=== PATIENT | female | born 1990 | race Caucasian/White ===

== ENCOUNTER → 2020-03-14 | Outpatient (CLI) | payer OTHER ==
[~2020-03-14] MED LIST: CETI10TA24 PO; HYDR12.58 PO; OXYC1TAB15 PO
== END | disposition home or self-care (01) ==
LOC: LAB 14:08
PROVIDERS: ATTEND Obstetrics & Gynecology
DX: Z01.818 Encounter for other preprocedural examination (principal); Z11.59 Encounter for screening for other viral diseases
CPT/HCPCS: U0003-CS

== ENCOUNTER 2020-03-17 06:07 | Day surgery (SDC) | payer OTHER ==
[~2020-03-17 06:07] MED LIST changes: -CETI10TA24 PO; +CETI10TA74 PO; -OXYC1TAB15 PO
[2020-03-17] MEDS ORDERED: SCOPOLAMINE 1.5MG PATCH. TD SCH (07:00)
[2020-03-17] MEDS ORDERED: fentaNYL PF VIAL 100 MCG/2 ML VIAL IV PRN ×2 (07:00)
[2020-03-17] MEDS ORDERED: PROCHLORPERAZINE 10 MG/2 ML VIAL. IV PRN (07:00)
[2020-03-17] MEDS ORDERED: LIDOCAINE 1% PF 2 ML VIAL. ID PRN (07:00)
[2020-03-17] MEDS ORDERED: MORPHINE SULFATE 2 MG/ML VIAL. IV PRN (07:00)
[2020-03-17] MEDS ORDERED: IV RINGERS,LACTATED 1000ML 1,000 ML IV SCH (07:00)
[2020-03-17] MEDS ORDERED: HYDROmorphone 2 MG/ML VIAL IV PRN (07:00)
[2020-03-17] MEDS ORDERED: ONDANSETRON PF 4 MG/2 ML VIAL. IV PRN (07:00)
[2020-03-17] MEDS ORDERED: SURGICEL HEMOSTAT 4X8 EACH. ONE (07:11)
[2020-03-17] MEDS ORDERED: BUPIVACAINE-EPI 0.25%-1:200000 MPF 30 ML VIAL. ONE (07:12)
[2020-03-17] MEDS ORDERED: KETOROLAC 30 MG/ML VIAL. ONE (07:36)
[2020-03-17] MEDS ORDERED: FAMOTIDINE 20 MG/2 ML VIAL ONE (07:36)
[2020-03-17] MEDS ORDERED: ONDANSETRON PF 4 MG/2 ML VIAL. ONE (07:36)
[2020-03-17] MEDS ORDERED: PROPOFOL 10 MG/ML (20ML) VIAL. IV ONE (07:36)
[2020-03-17] MEDS ORDERED: MIDAZOLAM HCL/PF 2 MG/2 ML VIAL. ONE (07:36)
[2020-03-17] MEDS ORDERED: fentaNYL PF VIAL 100 MCG/2 ML VIAL ONE (07:36)
[2020-03-17] MEDS ORDERED: SEVOFLURANE 31 TO 60 MINUTES. IH ONE (07:36)
[2020-03-17] MEDS ORDERED: LIDOCAINE 2% PF 5 ML VIAL. ONE (07:36)
[2020-03-17] MEDS ORDERED: ROCURONIUM 50 MG/5 ML VIAL. ONE (07:36)
[2020-03-17] MEDS ORDERED: DEXAMETHASONE SOD PHOS 4 MG/ML VIAL ONE ×2 (07:38→07:39)
[2020-03-17] MEDS ORDERED: ESMOLOL 100 MG/10 ML VIAL. IVP ONE (08:20)
[2020-03-17] MEDS ORDERED: GLYCOPYRROLATE 1 MG/5 ML VIAL. ONE (08:26)
[2020-03-17] MEDS ORDERED: NEOSTIGMINE METHYLSULFATE 5 MG/5 ML SYRINGE. ONE (08:26)
--- NOTE | 2020-03-17 08:35 | PDOC ---
BRIEF OPERATIVE NOTE Date: Mar 17, 2020 Pre-Op Diagnosis Sterilization Post-Op Diagnosis SAme Procedure Performed [facility]. Salpingectomy Surgeon Dr. Burks Journe[employer] Consumer Service: Juan Pablo Anesthesia Type: General Blood Loss 5 ml Specimens Obtained elvis. fallopian tubes Findings nml size uterus, nml fallopian tubes and ovaries elvis., IUD in place Complications none Operative Note see dictation SHANI BURKS Jr, MD Mar 17, 2020 08:35
--- NOTE | 2020-03-17 08:37 | DISCH ---
DISCHARGE INSTRUCTIONS Condition on Discharge Condition on Discharge: Stable Activity After Discharge Activity Instructions for Disc: Activity as tolerated Lifting Instructions after Dis: No heavy lifting Driving Instructions after Dis: Do not drive today Diet after Discharge Diet after Discharge: Regular Contacting the DRKourtney after DC Call your doctor for: Concerns you may have Follow-Up Follow up with: Dr. Burks in 1 wk SHANI BURKS Jr, MD Mar 17, 2020 08:37
[2020-03-17] MEDS ORDERED: OXYC1TAB15 PO (08:43)
[2020-03-17] MEDS ORDERED: oxyCODONE/APAP 5/325 1 TAB TABLET PO ONE (08:45)
--- NOTE | 2020-03-17 09:20 | OP ---
DATE OF SURGERY: 03/17/2020 PREOPERATIVE DIAGNOSIS: Sterilization. POSTOPERATIVE DIAGNOSIS: Sterilization. PROCEDURE: Laparoscopic bilateral salpingectomy. SURGEON: Shani Burks MD EDUCATIONAL INSTITUTION CURATOR: Juan Pablo. ANESTHESIA: GETA. ESTIMATED BLOOD LOSS: Less than 5 mL. COMPLICATIONS: None. FINDINGS: Normal size uterus, normal fallopian tubes and ovaries bilaterally. IUD in place. SUMMARY: A 29-year-old desires permanent sterilization. Counseled on risks, benefits and expectations as well as failure rate and voiced clear understanding to proceed. DESCRIPTION OF PROCEDURE: The patient was taken to surgery suite and placed in dorsal lithotomy position. She was prepped with Betadine solution for vaginal prep and ChloraPrep for abdominal prep. After adequate anesthesia, bivalve speculum was placed vaginally. Anterior lip of the cervix grasped with single tooth tenaculum. Norton uterine manipulator was then placed. The bivalve speculum was removed. Attention was placed on abdomen. Small transverse skin incision was made just below the umbilicus with a scalpel. Veress needle was then placed through the infraumbilical incision site. The abdomen was allowed to insufflate up to 1-1/2 liters CO2 gas. The Veress needle was then removed, 5 mm trocar was placed. The scope was positioned. Uterus, fallopian tubes and ovaries appeared normal. Two additional incisions made in the left lower quadrant with a 5 mm and 8 mm trocar was placed. With aid of [place] graspers and EnSeal device, the right fallopian tube was dissected away from the right adnexa. Same process took place with left adnexa. The pedicles were hemostatic. The trocars were then removed under direct visualization. The abdomen was allowed to deflate as much as possible along with mechanical manipulation. The three skin incisions were reapproximated using 4-0 Vicryl suture in subcuticular manner. A 0.25% Marcaine with epinephrine was injected at each incision site. Single tooth tenaculum and Norton uterine manipulator was then removed. The patient tolerated the procedure well and was taken to recovery room in stable condition. Sponge and needle count correct x 3. SHANI BURKS MD DR: JAIMEE/sophia JOB#: [id number] / [id number]
[2020-03-17] MEDS ORDERED: PROCHLORPERAZINE 10 MG/2 ML VIAL. ONE (09:26)
[2020-03-17 09:45] VITALS: BP 125/49
--- NOTE | 2020-03-18 17:07 | PATHOLOGY ---
[facility] Accession Number: [id number] . 01 Material submitted: . PART A: fallopian tube - RIGHT FALLOPIAN TUBE. Modifiers: right PART B: fallopian tube - LEFT FALLOPIAN TUBE. Modifiers: left . 01 Clinical history: . Sterilization . 02 Diagnosis: A. Right salpingectomy: - Segment of fallopian tube confirmed. . B. Left salpingectomy: - Segment of fallopian tube confirmed. (JPM:[facility] 03/18/2020) [facility] 03/18/2020 1532 Local . 02 Electronically signed: . Joseph Calderon MD, Pathologist NPI- [id number] . 01 Gross description: . A. The specimen is received in formalin, labeled "Leyla Jatinder, right fallopian tube". Received is a fimbriated fallopian tube measuring 5.3 cm in length by 0.5 cm in diameter. The serosal surface is pink-ling to pink-purple and smooth in appearance. Sectioning reveals a pinpoint to patent lumen. The specimen is submitted representatively in cassette A1. . B. The specimen is received in formalin, labeled "Leyla Jatinder, left fallopian tube". Received is a fimbriated fallopian tube measuring 5.2 cm in length by 0.6 cm in diameter. The serosal surface is pink-lópez and glistening in appearance. Sectioning reveals a pinpoint to patent lumen. The specimen is submitted representatively in cassette B1. ([facility]; 03/17/2020) QA/QA 03/17/2020 1724 Local . 02 Pathologist provided ICD-10: Z30.2 . 02 CPT . 336602, [id number] Specimen Comment: A courtesy copy of this report has been sent to [phone], [phone] Specimen Comment: [id number] Specimen Comment: Report sent to / DR VASQUEZ Performed at: [address], [place] [id number] MD Ed Browne MD Phone: [phone] [facility]formed [facility]: [facility] [address] [place], [place] [id number] MD Joseph Calderon MD Phone: [phone]
--- NOTE | 2020-03-25 12:38 | PDOC1 ---
History and Physical Date of Admission Date of Admission DATE: 03/25/20 TIME: 12:36 Identification/Chief Complaint Chief Complaint sterilization Source Source: Patient History of Present Illness History of Present Illness 29 y/o presents for surgical sterilization. Past Medical History Cardiovascular: No pertinent hx Pulmonary: No pertinent hx Past Surgical History Past Surgical History: No pertinent history Current Medications Current Medications Current Medications Ondansetron HCl (Zofran) 4 mg PRN Q6HRS PRN IV NAUSEA/VOMITING; Start 03/17/20 at 07:00; Stop 03/17/20 at 10:31; Status DC Fentanyl Citrate (Fentanyl 2ml Vial) 25 mcg PRN Q5MIN PRN IV MILD PAIN 1-3; Start 03/17/20 at 07:00; Stop 03/17/20 at 10:31; Status DC Fentanyl Citrate (Fentanyl 2ml Vial) 50 mcg PRN Q5MIN PRN IV MODERATE TO SEVERE PAIN; Start 03/17/20 at 07:00; Stop 03/17/20 at 10:31; Status DC Morphine Sulfate (Morphine Sulfate) 1 mg PRN Q10MIN PRN IV SEVERE PAIN 7-10; Start 03/17/20 at 07:00; Stop 03/17/20 at 10:31; Status DC Ringer's Solution 1,000 ml @ 30 mls/hr Q24H IV Last administered on 03/17/20at 06:48; Start 03/17/20 at 07:00; Stop 03/17/20 at 10:31; Status DC Lidocaine HCl (Xylocaine-Mpf 1% 2ml Vial) 2 ml PRN 1X PRN ID PRIOR TO IV START; Start 03/17/20 at 07:00; Stop 03/17/20 at 10:31; Status DC Hydromorphone HCl (Dilaudid) 0.5 mg PRN Q10MIN PRN IV SEV PAIN, Second choice; Start 03/17/20 at 07:00; Stop 03/17/20 at 10:31; Status DC Prochlorperazine Edisylate (Compazine) 5 mg PACU PRN PRN IV NAUSEA, MRX1 Last administered on 03/17/20at 09:29; Start 03/17/20 at 07:00; Stop 03/17/20 at 10:31; Status DC Scopolamine (Transderm-Scop) 1 patch Q3DAYS TD Last administered on 03/17/20at 06:49; Start 03/17/20 at 07:00; Stop 03/17/20 at 10:31; Status DC Cellulose (Surgicel Hemostat 4x8) 1 each STK-MED ONCE .ROUTE ; Start 03/17/20 at 07:11; Stop 03/17/20 at 07:11; Status DC Bupivacaine HCl/ Epinephrine Bitart (Sensorcaine-Epi 0.25%-1:185180 Mpf) 30 ml STK-MED ONCE .ROUTE Last administered on 03/17/20at 08:25; Start 03/17/20 at 07:12; Stop 03/17/20 at 07:12; Status DC Midazolam HCl (Versed) 2 mg STK-MED ONCE .ROUTE ; Start 03/17/20 at 07:36; Stop 03/17/20 at 07:36; Status DC Fentanyl Citrate (Fentanyl 2ml Vial) 100 mcg STK-MED ONCE .ROUTE ; Start 03/17/20 at 07:36; Stop 03/17/20 at 07:36; Status DC Rocuronium [place] (Zemuron) 50 mg STK-MED ONCE .ROUTE ; Start 03/17/20 at 07:36; Stop 03/17/20 at 07:37; Status DC Sevoflurane (Ultane) 30 ml STK-MED ONCE IH ; Start 03/17/20 at 07:36; Stop 03/17/20 at 07:37; Status DC Propofol (Diprivan) 200 mg STK-MED ONCE IV ; Start 03/17/20 at 07:36; Stop 03/17/20 at 07:37; Status DC Ketorolac Tromethamine (Toradol 30mg Vial) 30 mg STK-MED ONCE .ROUTE ; Start 03/17/20 at 07:36; Stop 03/17/20 at 07:37; Status DC Lidocaine HCl (Lidocaine Pf 2% Vial) 5 ml STK-MED ONCE .ROUTE ; Start 03/17/20 at 07:36; Stop 03/17/20 at 07:37; Status DC Ondansetron HCl (Zofran) 4 mg STK-MED ONCE .ROUTE ; Start 03/17/20 at 07:36; Stop 03/17/20 at 07:37; Status DC Famotidine (Pepcid Vial) 20 mg STK-MED ONCE .ROUTE ; Start 03/17/20 at 07:36; Stop 03/17/20 at 07:37; Status DC Dexamethasone Sodium Phosphate (Decadron) 4 mg STK-MED ONCE .ROUTE ; Start 03/17/20 at 07:38; Stop 03/17/20 at 07:39; Status DC Dexamethasone Sodium Phosphate (Decadron) 4 mg STK-MED ONCE .ROUTE ; Start 03/17/20 at 07:39; Stop 03/17/20 at 07:39; Status DC Esmolol HCl (Brevibloc) 100 mg STK-MED ONCE IVP ; Start 03/17/20 at 08:20; Stop 03/17/20 at 08:20; Status DC Glycopyrrolate (Robinul) 1 mg STK-MED ONCE .ROUTE ; Start 03/17/20 at 08:26; Stop 03/17/20 at 08:26; Status DC Neostigmine [place] (Neostigmine Methylsulfate) 5 mg STK-MED ONCE .ROUTE ; Start 03/17/20 at 08:26; Stop 03/17/20 at 08:26; Status DC Oxycodone/ Acetaminophen (Percocet 5/325) 1 tab 1X ONCE PO Last administered on 03/17/20at 09:39; Start 03/17/20 at 08:45; Stop 03/17/20 at 08:49; Status DC Prochlorperazine Edisylate (Compazine) 10 mg STK-MED ONCE .ROUTE ; Start 03/17/20 at 09:26; Stop 03/17/20 at 09:27; Status DC Active Scripts Active Reported Percocet 5-325 Mg Tablet (Oxycodone/Acetaminophen) 1 Each Tablet 1-2 Tab PO PRN Q6HRS PRN Zyrtec (Cetirizine Hcl) 10 Mg Tablet 10 Mg PO DAILY Hydrochlorothiazide Tablet (Hydrochlorothiazide) 12.5 Mg Tablet 25 Mg PO DAILY Allergies Allergies: Coded Allergies: Penicillins (Verified Allergy, Intermediate, FULL BODY HIVES, 03/15/20) ceftriaxone (Verified Allergy, Intermediate, FULL BODY HIVES, 03/15/20) cephalexin (Verified Allergy, Intermediate, FULL BODY HIVES, 03/15/20) moxifloxacin (Verified Allergy, Intermediate, Rash, 03/17/20) ROS General: No: Chills, Night Sweats, Fatigue, Malaise, Appetite, Other PSYCHOLOGICAL ROS: No: Anxiety, Behavioral Disorder, Concentration difficultie, Decreased libido, Depression, Disorientation, Hallucinations, Hostility, Irritablity, Memory difficulties, Mood Swings, Obsessive thoughts, Physical abuse, Sexual abuse, Sleep disturbances, Suicidal ideation, Other Eyes: No Blurry vision, No Decreased vision, No Double vision, No Dry eyes, No Excessive tearing, No Eye Pain, No Itchy Eyes, No Loss of vision, No Photophobia, No Scotomata, No Uses contacts, No Uses glasses, No Other HEENT: No: Heacaches, Visual Changes, Hearing change, Nasal congestion, Nasal discharge, Oral lesions, Sinus pain, Sore Throat, Epistaxis, Sneezing, Snoring, Tinnitus, Vertigo, Vocal changes, Other ALLERGY AND IMMUNOLOGY: No: Hives, Insect Bite Sensitivity, Itchy/Watery Eyes, Nasal Congestion, Post Nasal Drip, Seasonal Allergies, Other Hematological and Lymphatic: No: Bleeding Problems, Blood Clots, Blood Transfusions, Brusing, Night Sweats, Pallor, Swollen Lymph Nodes, Other Respiratory: No: Cough, Hemoptysis, Orthopnea, Pleuritic Pain, Shortness of breath, SOB with excertion, Sputum Changes, Stridor, Tachypnea, Wheezing, Other Cardiovascular: No Chest Pain, No Palpitations, No Orthopnea, No Paroxysmal Noc. Dyspnea, No Edema, No Lt Headedness, No Other Gastrointestinal: No Nausea, No Vomiting, No Abdominal Pain, No Diarrhea, No Constipation, No Melena, No Hematochezia, No Other Genitourinary: No Dysuria, No Frequency, No Incontinence, No Hematuria, No Retention, No Discharge, No Urgency, No Pain, No Flank Pain, No Other, No , No , No , No , No , No , No Musculoskeletal: No Gait Disturbance, No Joint Pain, No Joint Stiffness, No Joint Swelling, No Muscle Pain, No Muscular Weakness, No Pain In:, No Swelling In:, No Other Neurological: No Behavorial Changes, No Bowel/Bladder ControlChng, No Confusi on, No Dizziness, No Gait Disturbance, No Headaches, No Impaired Coord/balance, No Memory Loss, No Numbness/Tingling, No Seizures, No Speech Problems, No Tremors, No Visual Changes, No Weakness, No Other Skin: No Dry Skin, No Eczema, No Hair Changes, No Lumps, No Mole Changes, No Mottling, No Nail Changes, No Pruritus, No Rash, No Skin Lesion Changes, No Other, No Acne Physical Exam General: Alert, Oriented X3, Cooperative HEENT: Atraumatic Lungs: Clear to auscultation Heart: S1S2 Breasts: Normal Abdomen: Normal bowel sounds, Soft, No tenderness Neuro: Normal gait Psych/Mental Status: Mental status NL Vitals Vitals Vital Signs Date Time Temp Pulse Resp B/P (MAP) Pulse Ox O2 Delivery O2 Flow Rate FiO2 03/17/20 09:45 97.0 78 20 125/49 99 Room Air 97.0 03/17/20 09:13 10 VTE Prophylaxis Ordered VTE Prophylaxis Devices: Yes VTE Pharmacological Prophylaxi: No Assessment/Plan Assessment/Plan A: Sterilization P: Plan for [facility] bilateral salpingectomy for sterilization. Justicifation of Admission Dx: Justifications for Admission: Justification of Admission Dx: No SHANI CARRION Jr, MD Mar 25, 2020 12:38
== END 2020-03-17 10:31 | disposition home or self-care (01) ==
LOC: SURG 06:07
PROVIDERS: ATTEND Obstetrics & Gynecology
DX: Z30.2 Encounter for sterilization (principal); Z88.0 Allergy status to penicillin; Z88.8 Allergy status to other drugs, medicaments and biological substances; Z79.899 Other long term (current) drug therapy
CPT/HCPCS: 58661; 81025; J0780; J1100; J1885; J2250; J2405; J2704; J2710; J3010; J3490; 88302; A7015; J7030; J7120